=== PATIENT | male | born 1990 | race American Indian/Alaskan Native ===

== ENCOUNTER 2017-09-13 01:51 | Emergency (ER) | payer SELFPAY ==
[2017-09-13 01:57] VITALS: BP 128/58
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
[2017-09-13] MEDS ORDERED: TYLENOL PO ONE (04:36)
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
[2017-09-13] MEDS ORDERED: AUGMENTIN 875 MG PO ONE (04:55)
[2017-09-13 04:58] LABS: Amphetamine Screen,Urine PRESUMPTIVE NEGATIVE; Benzodiazepines Screen,Urine PRESUMPTIVE NEGATIVE; Cocaine Screen,Urine PRESUMPTIVE NEGATIVE; Methadone Screen,Urine PRESUMPTIVE NEGATIVE; Opiate Screen,Urine PRESUMPTIVE NEGATIVE
[2017-09-13 05:31] LABS: Cannabinoid Screen,Urine PRESUMPTIVE POSITIVE
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
== END 2017-09-13 06:21 | disposition home or self-care (01) ==
LOC: ED 01:51
DX: S00.83XA Contusion of other part of head, initial encounter (principal); S61.252A Open bite of right middle finger without damage to nail, initial encounter; Y04.1XXA Assault by human bite, initial encounter; Y93.89 Activity, other specified; Y92.89 Other specified places as the place of occurrence of the external cause; Y99.8 Other external cause status
CPT/HCPCS: 70450; 72125; 80307; 99284

== ENCOUNTER 2020-08-06 07:31 | Emergency (ER) | payer MEDICAID ==
[2020-08-06 08:13] VITALS: BP 106/67
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
[2020-08-06 08:31] LABS: Hematocrit 45.7 % (35.5-45.6); Hemoglobin 15.7 gm/dl (11.8-15.2); Mean Corpuscular HGB Conc 34 % (32-34); Mean Corpuscular Volume 93 fl (84-94); Platelet Count 205 K/mm3 (140-440); Red Cell Distribution Width 13.2 % (13.2-15.2)
[2020-08-06 08:40] LABS: INR 0.96 (0.87-1.13); Partial Thromboplastin Time 24.9 Sec. (24.2-36.6)
[2020-08-06 08:57] LABS: Alanine Aminotransferase 14 units/L (7-56); Albumin 3.9 g/dL (3.9-5); BUN/Creatinine Ratio 7; Blood Urea Nitrogen 8 mg/dL (9-20); Calcium 8.5 mg/dL (8.4-10.2); Hemolysis Index 39
[2020-08-06 09:19] LABS: Platelet Estimate Consistent w Auto; RBC Morphology Normal; Total Cells Counted 100
--- NOTE | 2020-08-06 10:42 | Emergency Department Report ---
HPI - General Chief Complaint: GI Bleed Time Seen by Provider: 08/06/20 08:16 - HPI HPI: This is a 29-year-old -[place]ron[place] male presents to the emergency department with a complaint of a 1 week history of diarrhea with dark tarry stool. The patient has some mild abdominal pain just before he gets diarrhea and then it resolves after he has his bowel movement. He says that he has been having an episode of diarrhea just about every hour while awake. He denies any fever, dysuria, nausea or vomiting, chest pain, back pain. No past medical history. Patient has been taking Pepto-Bismol multiple times per day since this began. No recent travel or sick contacts at home. He does not have a primary care physician. ED Past Medical Hx - Social History Smoking Status: Current Every Day Smoker Substance Use Type: None - Medications Home Medications: Home Medications Medication Instructions Recorded Confirmed Last Taken Type Sulfamethoxazole/Trimethoprim 1 each PO BID #20 tablet 08/25/14 Unknown Rx [Bactrim Ds] traMADoL [Ultram] 50 mg PO Q6HR PRN #14 tablet 08/25/14 Unknown Rx Amoxicillin/Potassium Clav 1 each PO BID 10 Days #20 tablet 09/13/17 Unknown Rx [Augmentin 875-125 Tablet] Ibuprofen [Motrin 600 MG tab] 600 mg PO Q8H PRN #30 tablet 09/13/17 Unknown Rx Omeprazole 20 mg PO QDAY #15 capsule. 08/06/20 Unknown Rx ED Review of Systems ROS: Stated complaint: CONSTANT DIARRHEA FOR A WEEK Other details as noted in HPI Comment: All other systems reviewed and negative Constitutional: denies: chills, fever Eyes: denies: eye pain, vision change ENT: denies: ear pain, throat pain Respiratory: denies: cough, shortness of breath Cardiovascular: denies: chest pain, palpitations Gastrointestinal: abdominal pain, melena. denies: nausea, vomiting Genitourinary: denies: dysuria, discharge Musculoskeletal: denies: back pain, arthralgia Skin: denies: rash, lesions Neurological: denies: headache, weakness Physical Exam - Physical Exam Vital Signs: Vital Signs 08/06/20 08:10 Temperature 98.5 F Pulse Rate 87 Respiratory 18 Rate Blood Pressure 106/67 O2 Sat by Pulse 97 Oximetry Physical Exam: GENERAL: The patient is well-developed well-nourished. HENT: Normocephalic. Atraumatic. Patient has moist mucous membranes. EYES: Extraocular motions are intact. NECK: Supple. Trachea is midline. CHEST/LUNGS: Clear to auscultation. There is no respiratory distress noted. HEART/CARDIOVASCULAR: Regular. There is no tachycardia. There is no murmur. ABDOMEN: Abdomen is soft, nontender. Patient has normal bowel sounds. There is no abdominal distention. SKIN: Skin is warm and dry. NEURO: The patient is awake, alert, and oriented. The patient is cooperative. The patient has no focal neurologic deficits. Normal speech. MUSCULOSKELETAL: There is no tenderness or deformity. There is no limitation range of motion. RECTAL: No external hemorrhoids or lesions seen. There is a small amount of dark stool obtained but it is not positive on guaiac testing. No gross hematochezia. ED Course Vital Signs 08/06/20 08:10 Temperature 98.5 F Pulse Rate 87 Respiratory 18 Rate Blood Pressure 106/67 O2 Sat by Pulse 97 Oximetry ED Medical Decision Making - Lab Data Result diagrams: 08/06/20 08:16 08/06/20 08:16 Lab Results 08/06/20 08/06/20 08/06/20 Range/Units 08:16 08:16 08:23 WBC 3.1 L (4.5-11.0) K/mm3 RBC 4.90 (3.65-5.03) M/mm3 Hgb 15.7 H (11.8-15.2) gm/dl Hct 45.7 H (35.5-45.6) % MCV 93 (84-94) fl MCH 32 (28-32) pg MCHC 34 (32-34) % RDW 13.2 (13.2-15.2) % Plt Count 205 (140-440) K/mm3 [place] % (Auto) 6Th Grade Teacher Add Manual Diff Complete Total Counted 100 Seg Neuts % (Manual) 32.0 L (40.0-70.0) % Lymphocytes % (Manual) 43.0 H (13.4-35.0) % Reactive Lymphs % (Man) 3.0 % Monocytes % (Manual) 20.0 H (0.0-7.3) % Eosinophils % (Manual) 2.0 (0.0-4.3) % Nucleated RBC % Not Reportable Seg Neutrophils # Man 1.0 L (1.8-7.7) K/mm3 Band Neutrophils # 0.0 K/mm3 Lymphocytes # (Manual) 1.3 (1.2-5.4) K/mm3 Abs React Lymphs (Man) 0.1 K/mm3 Monocytes # (Manual) 0.6 (0.0-0.8) K/mm3 Eosinophils # (Manual) 0.1 (0.0-0.4) K/mm3 Basophils # (Manual) 0.0 (0.0-0.1) K/mm3 Metamyelocytes # 0.0 K/mm3 Myelocytes # 0.0 K/mm3 Promyelocytes # 0.0 K/mm3 Blast Cells # 0.0 K/mm3 WBC Morphology Not Reportable Hypersegmented Neuts Not Reportable Hyposegmented Neuts Not Reportable Hypogranular Neuts Not Reportable Smudge Cells Not Reportable Toxic Granulation Not Reportable Toxic Vacuolation Not Reportable Dohle Bodies Not Reportable Pelger-Huet Anomaly Not Reportable Erlinda Rods Not Reportable Platelet Estimate Consistent w auto Clumped Platelets Not Reportable Plt Clumps, EDTA Not Reportable Large Platelets Not Reportable Giant Platelets Not Reportable Platelet Satelliting Not Reportable Plt Morphology Comment Not Reportable RBC Morphology Normal Dimorphic RBCs Not Reportable Polychromasia Not Reportable Hypochromasia Not Reportable Poikilocytosis Not Reportable Anisocytosis Not Reportable Microcytosis Not Reportable Macrocytosis Not Reportable Spherocytes Not Reportable Pappenheimer Bodies Not Reportable Sickle Cells Not Reportable Target Cells Not Reportable Tear Drop Cells Not Reportable Ovalocytes Not Reportable Helmet Cells Not Reportable [place] Bodies Not Reportable [place] Rings Not Reportable Mart Cells Not Reportable Bite Cells Not Reportable Crenated Cell Not Reportable Elliptocytes Not Reportable Acanthocytes (Spur) Not Reportable Rouleaux Not Reportable Hemoglobin C Crystals Not Reportable Schistocytes Not Reportable Malaria parasites Not Reportable Stephane Bodies Not Reportable Hem Pathologist Commnt No PT 12.6 (12.2-14.9) Sec. INR 0.96 (0.87-1.13) APTT 24.9 (24.2-36.6) Sec. Sodium 141 (137-145) mmol/L Potassium 4.6 (3.6-5.0) mmol/L Chloride 103.6 (98-107) mmol/L Carbon Dioxide 29 (22-30) mmol/L Anion Gap 13 mmol/L BUN 8 L (9-20) mg/dL Creatinine 1.2 (0.8-1.3) mg/dL Estimated GFR > 60 ml/min BUN/Creatinine Ratio 7 % Glucose 87 (75-100) mg/dL Calcium 8.5 (8.4-10.2) mg/dL Total Bilirubin 0.30 (0.1-1.2) mg/dL AST 21 (5-40) units/L ALT 14 (7-56) units/L Alkaline Phosphatase 52 (35-129) units/L Total Protein 6.7 (6.3-8.2) g/dL Albumin 3.9 (3.9-5) g/dL Albumin/Globulin Ratio 1.4 % - Medical Decision Making This patient presents to the emergency department with complaint of a 1 week history of copious diarrhea and concern for melena. On examination the patient does not appear in any acute distress. His abdomen is soft, nontender, nondistended and nontoxic in appearance. He does not complain of any abdominal pain except for just prior to having a bowel movement. Vital signs have been reassuring throughout his ED course including being afebrile. His labs have been mostly unremarkable. He has a hemoglobin of 15.7. No leukocytosis and with the mild leukopenia it might be a viral gastroenteritis. Despite the diarrhea it does not appear to have caused any electrolyte abnormalities or signs of dehydration. I did a rectal examination that showed a small amount of dark appearing stool, but it was negative on guaiac testing. The patient has been using a lot of Pepto-Bismol to try and treat the diarrhea which is known to cause dark, melanotic appearing stools. Even if it is melena, and just happens to be negative on this guaiac testing, the patient has an appropriate hemoglobin and he does not appear to require admission or emergent GI intervention. The patient will be discharged home on a PPI and given outpatient referral for both primary care and gastroenterology. He will return to the emergency department with any worsening of his symptoms or with any acute distress. Critical Care Time: No Critical care attestation.: If time is entered above; I have spent that time in minutes in the direct care of this critically ill patient, excluding procedure time. ED Disposition Clinical Impression: Complaint of melena Diarrhea Qualifiers: Diarrhea type: unspecified type Qualified Code(s): R19.7 - Diarrhea, unspecified Disposition: TO HOME OR SELFCARE Is pt being admited?: No Condition: Stable Instructions: Diarrhea, Adult, Gastrointestinal Bleeding Additional Instructions: Please follow-up with a primary care physician in the next few days. While the stool did appear dark, it was negative today when it was tested for blood. I believe the dark appearance of your stool is secondary to taking the Pepto-Bismol. That being said, I am giving you a referral for [facility] to follow-up regarding the diarrhea and possible bloody stool. Your hemoglobin today was greater than 15, which is within normal limits. Return to the emergency department with any worsening of your symptoms, new or concerning symptoms not addressed during this current emergency department visit, or with any acute distress. Prescriptions: Omeprazole 20 mg PO QDAY #15 capsule.dr Referrals: ALEJANDRO JAIME MD [Staff Physician] - 2-3 Days [facility] [Provider Group] - 2-3 Days [facility] [Provider Group] - 2-3 Days Forms: Accompanied Note Time of Disposition: 11:01
[2020-08-06 11:55] LABS: Bilirubin,Urine NEG (Negative); Blood,Urine NEG (Negative); Color,Urine Yellow (Yellow); Mucus,Urine 2+ /HPF; Protein,Urine <15 mg/dL mg/dL (Negative); Urobilinogen,Urine < 2.0 mg/dL (<2.0)
== END 2020-08-06 12:43 | disposition home or self-care (01) ==
LOC: ED 07:31
DX: R19.7 Diarrhea, unspecified (principal); K92.1 Melena; F17.200 Nicotine dependence, unspecified, uncomplicated; Z79.899 Other long term (current) drug therapy
CPT/HCPCS: 36415; 80053; 81001; 85007; 85025; 85610; 85730